=== PATIENT | female | born 1985 | race Caucasian/White ===

== ENCOUNTER → 2017-06-25 | Outpatient (CLI) | payer OTHER ==
--- NOTE | 2017-06-26 06:32 | DI ---
US OB LESS THAN 14 WEEKS,06/25/2017 12:47 PM: Clinical History: Establish gestational age. Previous Exam: None available. Findings: Multiple grayscale and color Doppler sonographic images are obtained through the pelvis, and demonstr ate a single intrauterine gestation with a crown-rump length of 4.7 cm corresponding with an estimate d gestational age of 11 weeks 4 days. Detected Doppler heart tones measure 165 beats per minute. The urinary bladder is unremarkable. Impression: Single live intrauterine gestation with estimated gestational age of 11 weeks 4 days.
== END ==
LOC: US 12:43
PROVIDERS: ATTEND Family Medicine
DX: Z36 Encounter for antenatal screening of mother (principal); Z3A.11 11 weeks gestation of pregnancy
CPT/HCPCS: 76801; 76817

== ENCOUNTER → 2017-06-26 | Outpatient (CLI) | payer OTHER ==
[2017-06-26 15:25] LABS: BASOPHILS # (AUTO) 0.03 10*3/UL; BASOPHILS % (AUTO) 0.4 % (0-1); EOSINOPHILS # (AUTO) 0.06 10*3/UL; EOSINOPHILS % (AUTO) 0.7 % (0-8); HEMATOCRIT 36.7 % (37.0-47.0); HEMOGLOBIN 12.8 g/dL (12.0-16.0); LYMPHOCYTES # (AUTO) 1.47 10*3/uL; MEAN CORPUSCULAR HEMOGLOBIN 30.8 PG (27-31); MEAN CORPUSCULAR HGB CONC 34.9 g/dL (33-37); MEAN CORPUSCULAR VOLUME 88.4 FL (81-99); MEAN PLATELET VOLUME 10.6 FL (7.4-12.2); MONOCYTES % (AUTO) 7.3 % (5-15); NEUTROPHILS # (AUTO) 6.07 10*3/UL; NEUTROPHILS % (AUTO) 73.7 % (50-80); RED BLOOD COUNT 4.15 10^6/uL (4.20-5.40)
[2017-06-26 15:27] LABS: PLATELET MORPHOLOGY COMMENT NORMAL MORPHOLOGY (NORM); RBC MORPHOLOGY COMMENT NORMAL MORPHOLOGY (NORM); WBC MORPHOLOGY COMMENT NORMAL MORPHOLOGY (NORM)
[2017-06-26 17:47] LABS: HIV ANTIBODY NEGATIVE (N); HIV-1 P24 ANTIGEN NEGATIVE (N)
== END ==
LOC: MOB LAB 13:36
PROVIDERS: ATTEND Family Medicine
DX: Z36 Encounter for antenatal screening of mother (principal); Z3A.11 11 weeks gestation of pregnancy
CPT/HCPCS: 36415; 80081; 86870; 86900; 86901; 87088

== ENCOUNTER 2018-01-03 06:14 | Inpatient (IN) ==
[2018-01-03] MEDS ORDERED: LIDOCAINE W/ SODIUM BICARB 0.5 ML SYR SUBD PRN (06:39)
[2018-01-03] MEDS ORDERED: CITRIC ACID/SODIUM CITRATE 30 ML CUP PO ONE (06:39)
[2018-01-03] MEDS ORDERED: LIDOCAINE HCL 2 % 10 ML JELLY URO-JECT TOPICAL PRN (06:39)
[2018-01-03] MEDS ORDERED: Famotidine Inj 20 MG in Normal Saline Flush 10 ML IVP ONE (06:39)
[2018-01-03] MEDS ORDERED: NORMAL SALINE 10 ML SYRINGE FLUSH IVP PRN ×3 (06:39→09:45)
[2018-01-03] MEDS ORDERED: Metoclopramide Inj 10 MG/2 ML VIAL IV ONE (06:39)
[2018-01-03] MEDS ORDERED: CefOXitin Inj 2 GM in Sodium Chloride 0.9% 100 ML IV ONE (06:39)
[2018-01-03] MEDS ORDERED: Oxytocin 20 Units + LR 20 UNIT/1,000 ML BAG IV SCH ×2 (06:45→09:45)
[2018-01-03] MEDS ORDERED: Lactated Ringers 1,000 ML PRIMARY IV SCH (06:45)
[2018-01-03 07:03] LABS: Hematocrit [HCT] 35.3 % (37.0-47.0); Hemoglobin [HGB] 11.9 g/dL (12.0-16.0); MEAN CORPUSCULAR HEMOGLOBIN 30.8 PG (27-31); MEAN CORPUSCULAR HGB CONC 33.7 g/dL (33-37); MEAN CORPUSCULAR VOLUME 91.5 FL (81-99); MEAN PLATELET VOLUME 10.5 FL (7.4-12.2); RED BLOOD COUNT 3.86 10^6/uL (4.20-5.40)
[2018-01-03] MEDS ORDERED: Oxytocin 20 Units + LR 20 UNIT/1,000 ML BAG IV ONE (07:03)
[2018-01-03] MEDS ORDERED: ONDANSETRON 4 MG/2 ML VIAL IVP PRN ×2 (07:08→09:45)
[2018-01-03] MEDS ORDERED: fentaNYL Inj 100 MCG/2 ML VIAL IVP PRN (07:08)
[2018-01-03] MEDS ORDERED: HYDROmorphone 2 MG/1 ML IVP PRN (07:08)
[2018-01-03] MEDS ORDERED: Ondansetron ODT Tab 8 MG TAB PO PRN (07:08)
[2018-01-03] MEDS ORDERED: Sodium Chloride 0.9% 100 ML IV ONE (07:18)
[2018-01-03] MEDS ORDERED: ePHEDrine Inj 50 MG/ML AMP ONE (07:24)
[2018-01-03] MEDS ORDERED: Sodium Chloride 0.9% vial 10 ML ONE ×2 (07:25→07:29)
[2018-01-03] MEDS: Lactated Ringers 1,000 ML PRIMARY IV ONE ×2 (07:27→07:29)
[2018-01-03] MEDS ORDERED: PHENYLEPHRINE 10,000 MCG/1 ML VIAL ONE (07:27)
[2018-01-03] MEDS ORDERED: fentaNYL Inj 100 MCG/2 ML VIAL ONE (07:55)
[2018-01-03] MEDS ORDERED: ONDANSETRON 4 MG/2 ML VIAL ONE (08:23)
--- NOTE | 2018-01-03 09:26 | OB.OP.NOTE ---
Operative Report Surgeon: Ravi Caruso MD History Teacher: Kumar Hyde MD Anesthesia Type: Regional Anesthesia Provider: Zaina Preciado CRNA Surgery Date: 01/03/18 Preoperative Diagnosis: Previous section, Desired parity Postoperative Diagnosis: same, delivered Procedure: Repeat low transverse section with bilateral tubal ligation with Filshie clips Complications: none Estimated Blood Loss (mL): 400 Urine Output (mL): 400 Fluids: 3000 cc LR Indications: We do not offer vaginal after section trials at our facility and the patient did not desire this. She is requesting a repeat section with bilateral tubal ligation for sterility. Findings: female infant in cephalic presentation, normal amniotic fluid. Normal uterus, tubes and ovaries. Description of Procedure: The patient was taken to the operating room where spinal anesthesia was found to be adequate. She was then prepared and draped in the normal sterile fashion in the dorsal supine position with a leftward tilt. A Pfannenstiel skin incision was then made with the scalpel and carried through to the underlying layer of fascia with the Bovie. The fascia was incised in the midline and the incision extended laterally with the Bovie. The superior aspect of the fascial incision was then grasped with Michelle clamps, elevated, and the underlying rectus muscles dissected off bluntly. Attention was then turned to the inferior aspect of this incision which, in a similar fashion, was grasped with Michelle clamps and the rectus muscles dissected off both bluntly and with the Bovie. The rectus muscles were then in the midline, and the peritoneum identified, tented up, and entered in a blunt fashion. The peritoneal incision was then extended superiorly and inferiorly with good visualization of the bladder. The Derrell retractor was then inserted and the vesicouterine peritoneum was identified. The lower uterine segment incised in the transverse fashion with the scalpel. The uterine incision was then extended laterally in a blunt fashion. The infant's head was delivered atraumatically. The nose and mouth were suctioned with the bulb suction and the cord clamped and cut. The was handed off to the awaiting nurse. Cord gases and cord blood were sent for analysis. The placenta was then removed manually; the uterus exteriorized, and cleared of all clots and debris. The uterine incision was repaired with 0 Vicryl in a running, locked fashion. Because the pt had requested a bilateral tubal ligation , only 1 layer was used to close the uterus and there was excellent hemostasis. The left fallopian tube was identified and a single Filshie clip was placed in the mid ischmic region. The right fallopian tube was identified and a single Filshie clip was placed in the mid isthmic region. The posterior cul-de-sac was irrigated copiously with warm saline. The uterus was returned to the abdomen. The paracolic gutters were copiously irrigated with warm saline and a second look at the uterine incision continued to reveal excellent hemostasis. The peritoneum was closed with 3-0 Vicryl. The fascia was reapproximated with 0 PDS in a running fashion. The subcutaneous space was irrigated with copiously with warm saline and the closed first with 3-0 Vicryl rapide suture and then more superficially with Insorb absorbable sutures. The skin was reapproximated with Steri-Strips and a Silverlon dressing applied. Fundal massage was completed with no clots in vaginal vault. The patient tolerated the procedure well. Sponge, lap, and needle counts were correct x2. Ancef was given preoperatively less than one hour prior to incision time. The patient was taken to the recovery room in stable condition.
[2018-01-03] MEDS ORDERED: diphenhydrAMINE 50 MG/1 ML VIAL IV PRN (09:45)
[2018-01-03] MEDS ORDERED: HYDROmorphone 2 MG/1 ML IV PRN (09:45)
[2018-01-03] MEDS ORDERED: diphenhydrAMINE 25 MG CAPSULE PO PRN (09:45)
[2018-01-03] MEDS ORDERED: DIPH,PERTUSS,TET(ADACEL) VAC/PF 0.5 ML (Tdap) IM ONE (09:45)
[2018-01-03] MEDS ORDERED: Naloxone Inj 0.01 MG, Sodium Chloride 0.9% vial 1 ML IVP PRN ×2 (09:45)
[2018-01-03] MEDS ORDERED: Nalbuphine Inj 20 MG/ML Ampule IVP PRN (09:45)
[2018-01-03] MEDS ORDERED: Famotidine Inj 20 MG in Normal Saline Flush 10 ML IVP PRN (09:45)
[2018-01-03] MEDS ORDERED: LANOLIN HPA 40 GM TUBE TOPICAL PRN (09:45)
[2018-01-03] MEDS: KETOROLAC 15 MG/1 ML VIAL IVP SCH ×3 (10:27→21:18)
[2018-01-03] MEDS: oxyCODONE-ACETAMINOPHEN 5-325 TAB PO PRN ×3 (11:25→21:17)
[2018-01-03] MEDS: D5-LR 1,000 ML PRIMARY IV SCH (16:09)
[2018-01-04] MEDS: D5-LR 1,000 ML PRIMARY IV SCH ×2 (00:17→07:05)
[2018-01-04] MEDS: KETOROLAC 15 MG/1 ML VIAL IVP SCH ×2 (03:31→08:59)
[2018-01-04] MEDS: CALCIUM CARBONATE 500 MG (TUMS) CHEWABLE TABLET PO PRN (05:30)
[2018-01-04 05:47] LABS: Hematocrit [HCT] 31.6 % (37.0-47.0); Hemoglobin [HGB] 10.3 g/dL (12.0-16.0); MEAN CORPUSCULAR HEMOGLOBIN 30.4 PG (27-31); MEAN CORPUSCULAR HGB CONC 32.6 g/dL (33-37); MEAN CORPUSCULAR VOLUME 93.2 FL (81-99); MEAN PLATELET VOLUME 10.7 FL (7.4-12.2); RED BLOOD COUNT 3.39 10^6/uL (4.20-5.40)
[2018-01-04] MEDS: oxyCODONE-ACETAMINOPHEN 5-325 TAB PO PRN ×4 (08:58→21:26)
[2018-01-04] MEDS: Senna/Docusate Tab 1 TAB TAB PO SCH ×2 (08:58→21:26)
[2018-01-04] MEDS: Prenatal Multivitamin Tab 1 TAB TAB PO SCH (08:58)
[2018-01-04] MEDS ORDERED: SIMETHICONE 80 MG TABLET PO PRN (09:03)
[2018-01-04] MEDS: IBUPROFEN 800 MG TABLET PO PRN (15:12)
[2018-01-04] MEDS: FERROUS GLUCONATE 324 MG TABLET PO SCH (21:26)
[2018-01-05] MEDS: IBUPROFEN 800 MG TABLET PO PRN ×2 (00:09→08:50)
[2018-01-05] MEDS: CALCIUM CARBONATE 500 MG (TUMS) CHEWABLE TABLET PO PRN (03:05)
[2018-01-05] MEDS: Prenatal Multivitamin Tab 1 TAB TAB PO SCH (08:50)
[2018-01-05] MEDS: FERROUS GLUCONATE 324 MG TABLET PO SCH (08:50)
[2018-01-05] MEDS: Senna/Docusate Tab 1 TAB TAB PO SCH (08:50)
[2018-01-05] MEDS: oxyCODONE-ACETAMINOPHEN 5-325 TAB PO PRN ×2 (08:52→12:57)
[2018-01-05 10:10] VITALS: BP 112/71; RESP 18; TEMP 97.8; O2SAT 99
--- NOTE | 2018-01-05 12:43 | OB.PROGRES ---
Subjective Post Op Day: 1 Pain Management: PO M[place]uia Catheter: No Flatus: Yes Diet: Regular Feeding Method: Exculsively Ambulating: Yes Concerns / Additional Information: Feeling well, has no concerns. Mod lochia. Denies calf pain, shortness of breath or chest pain. Objective - General General Appearance: POSITIVE: No Acute Distress, Cooperative - Cardiovacular Cardiovascular Exam: POSITIVE: RRR, No Murmur Edema: +1 Pedal Edema Extremities: Negative Re's - Bilaterally - Respiratory Respiratory Exam: POSITIVE: Clear to Auscultation - Bilaterally, Breathing Non Labored - Abdomen Bowel Sounds: Hypoactive Abdominal Wound Assessment: Silverlone Dressing Assesstment / Plan (1) Status post repeat low transverse section Current Visit: Yes Status: Acute (2) Surgical history of tubal ligation Current Visit: Yes Status: Acute Assessment / Plan: -routine cares. -H&H show a mild anemia, will start ferrous gluconate bid. -breast feeding well. -rh positive, + anti-E antibody. Blood on hold in the lab. No need for transfusion at this time. -rubella immune. -d/c home probably tomorrow.
--- NOTE | 2018-01-05 12:47 | DCSUMMARY ---
Hospitalization Summary Admit Date: 01/03/18 Discharge Date: 01/05/18 Primary Diagnosis:: Repeat section Secondary Diagnosis:: Desired parity Primary Surgery and Date: Repeat section with bilateral tubal ligation using Filshie clips. Delivery Type: Hospital Course: Pt was admitted for a repeat section with bilateral tubal ligation with Filshie clips. For details of her surgery, please see separate op note elsewhere in the chart. / Postop Complications: Pt had a normal post-operative course. On the day of discharge, she was ambulating and independent in her activities of daily living, baby was feeding well, and she was voiding without issue. She had flatus, but no bowel movement while in the hospital. She was requesting discharge home. Complications: None noted. Exam - Vitals Vital Signs: Vital Signs Temperature 97.8 F Temperature Source Oral Pulse Rate [Pulse Oximeter] 61 Pulse Rate [Telemetry] 65 Pulse Rate 97 Respiratory Rate 18 Blood Pressure [Left Arm] 112/71 Blood Pressure [Right Arm] 106/78 Blood Pressure 93/54 Pulse Ox 99 Oxygen Flow Rate RA Oxygen Delivery Method Room Air Height 5 ft 10 in Weight 196 lb - General General Appearance: No Acute Distress, Cooperative - Head Head Exam: Normal Inspection, Normocephalic - Eye Eye Exam: POSITIVE: Normal Appearance - ENT ENT Exam: POSITIVE: Normal Exam, Normal External Ear Exam, Mucous Membranes Moist - Neck Neck Exam: Normal Inspection, Full ROM - Respiratory Respiratory Exam: POSITIVE: Clear to Auscultation - Bilaterally, Breathing Non Labored - Cardiovascular Cardiovascular Exam: POSITIVE: RRR, No Murmur - GI/Abdominal GI/Abdominal Exam: POSITIVE: Normal Bowel Sounds, Non Tender, Non Distended, Soft - Extremities Extremities Exam: POSITIVE: Normal Inspection, Full ROM, Normal Capillary Refill - Back Back Exam: POSITIVE: Normal Inspection - Neurological Neurological Exam: POSITIVE: Alert, Oriented x 3 - Psychiatric Psychiatric Exam: POSITIVE: Normal Affect, Normal Mood - Integumentary Integumentary Exam: POSITIVE: Normal Color, Warm Patient Problems - Patient Problem List (1) Status post repeat low transverse section Current Visit: Yes Status: Acute Code(s): Z98.891 - History of uterine scar from previous surgery Category: Medical (2) Surgical history of tubal ligation Current Visit: Yes Status: Acute Code(s): Z98.51 - Tubal ligation status Category: Medical
== END 2018-01-05 14:42 | disposition home or self-care (01) | DRG 766 ==
LOC: OPS 06:14 → OBIP 09:30
PROVIDERS: ADMIT Family Medicine; ATTEND Family Medicine